=== PATIENT | female | born 2000 | race Caucasian/White ===

== ENCOUNTER 2024-01-17 09:57 | Emergency (ER) | payer OTHER ==
[~2024-01-17] VITALS: Ht 167.6 cm; Wt 100.7 kg
[2024-01-17 09:59] VITALS: BP 113/59; PULSE 78; RESP 14; TEMP 97.7; O2SAT 97
[2024-01-17 11:03] VITALS: BP 102/61; PULSE 78; RESP 21; O2SAT 97
[2024-01-17 11:06] LABS: BASOPHILS % (AUTO) 0.6 % (0.0-2.0); EOSINOPHILS # (AUTO) 0.1 K/uL (0-0.4); EOSINOPHILS % (AUTO) 1.4 % (0.0-4.0); HEMATOCRIT 40.4 % (36-48); HEMOGLOBIN 13.6 g/dL (12.0-16.0); LYMPHOCYTES # (AUTO) 2.3 K/uL (2.5-16.5); MEAN CORPUSCULAR HEMOGLOBIN 31 pg (27-31); MEAN CORPUSCULAR HGB CONC 34 g/dL (33-37); MEAN CORPUSCULAR VOLUME 91.6 fL (80-94); MONOCYTES # (AUTO) 0.4 K/uL (0.8-1.0); MONOCYTES % (AUTO) 6.8 % (1.7-9.3); NEUTROPHILS # (AUTO) 3.3 K/uL (1.8-7.7); NEUTROPHILS % (AUTO) 54.2 % (42.2-75.2); PLATELET COUNT (AUTO) 301 K/uL (140-450); RED BLOOD CELL COUNT(AUTO) 4.41 MIL/uL (4.20-5.40); RED CELL DISTRIBUTION WIDTH 12.3 % (11.6-13.7); WHITE BLOOD COUNT (AUTO) 6.1 K/uL (4.8-10.8)
[2024-01-17 11:26] LABS: CALCIUM 8.7 mg/dL (8.5-10.1); CARBON DIOXIDE 27.7 mmol/L (21-32); CREATININE 0.8 mg/dL (0.6-1.3); POTASSIUM 3.7 mmol/L (3.5-5.1)
[2024-01-17 11:35] LABS: THYROID STIMULATING HORMONE 1.29 uIU/mL (0.34-3.74)
[2024-01-17] MEDS ORDERED: HYDR25CA1 PO (12:09)
[2024-01-17] MEDS ORDERED: FAMO-90 PO (12:09)
[2024-01-17] MEDS ORDERED: IBUP-1842 PO (12:09)
== END 2024-01-17 12:25 | disposition home or self-care (01) ==
LOC: MED 09:57
DX: R07.9 Chest pain, unspecified (principal); F41.9 Anxiety disorder, unspecified; Z79.899 Other long term (current) drug therapy
CPT/HCPCS: 36415; 71045; 80048; 81002; 81025; 84443; 84484; 85025; 93005; 99285; Q0092